=== PATIENT | male | born 1970 | race Caucasian/White ===

== ENCOUNTER 2017-12-17 03:11 | Emergency (ER) | payer MEDICAID ==
[2017-12-17 04:25] LABS: URINE BLOOD (Dip) POC Negative (NEGATIVE); URINE GLUCOSE (Dip) POC Negative (NEGATIVE); URINE KETONES (Dip) POC 2+ (NEGATIVE); URINE LEUKOCYTE EST (Dip) POC Negative (NEGATIVE); URINE NITRITE (Dip) POC Negative (NEGATIVE); URINE TOTAL PROTEIN POC Negative (NEGATIVE)
[2017-12-17 04:25] LABS: URINE PH (Dip) POC 5.5 (5.0-8.5)
[2017-12-17] MEDS: HYDROCODONE/APAP (10/325) TAB PO (04:36)
[2017-12-17] MEDS: ONDANSETRON 4 MG INJ IV (04:36)
[2017-12-17 04:42] LABS: WHITE BLOOD COUNT 14.3 10^3/ul (4.8-10.8)
[2017-12-17 04:42] LABS: HEMATOCRIT 48.3 % (42.0-52.0); HEMOGLOBIN 16.1 g/dl (14.0-18.0); MEAN CORPUSCULAR HEMOGLOBIN 29.7 pg (29.0-33.0); MEAN CORPUSCULAR HGB CONC 33.3 g/dl (32.0-37.0); MEAN PLATELET VOLUME 10.6 fl (7.4-10.4); PLATELET COUNT 276 10^3/UL (140-415); RED BLOOD COUNT 5.43 10^6/ul (4.70-6.10); RED CELL DISTRIBUTION WIDTH 12.6 % (11.5-14.5)
[2017-12-17 05:03] LABS: ADD MAN DIFF? YES
[2017-12-17 05:11] LABS: ALANINE AMINOTRANSFERASE 97 IU/L (13-69); ALBUMIN 4.7 g/dl (3.3-4.9); ALBUMIN/GLOBULIN RATIO 1.34; ALKALINE PHOSPHATASE 102 IU/L (42-121); ANION GAP 16 (8-16); ASPARTATE AMINO TRANSFERASE 47 IU/L (15-46); BILIRUBIN,INDIRECT 0.2 mg/dl (0-1.1); BILIRUBIN,TOTAL 0.2 mg/dl (0.2-1.3); BLOOD UREA NITROGEN 16 mg/dl (7-20); CARBON DIOXIDE 27 mmol/L (21-31); CHLORIDE 106 mmol/L (97-110); CREATININE 0.86 mg/dl (0.61-1.24); GLUCOSE 103 mg/dl (70-220); LIPASE 183 U/L (23-300); POTASSIUM 3.8 mmol/L (3.5-5.1); SODIUM 145 mmol/L (135-144); TOTAL PROTEIN 8.2 g/dl (6.1-8.1)
== END 2017-12-17 06:02 | disposition home or self-care (01) ==
LOC: E/R 03:11
DX: R10.84 Generalized abdominal pain (principal); F17.210 Nicotine dependence, cigarettes, uncomplicated
CPT/HCPCS: 36415; 74176; 80053; 81003; 83690; 85025; 96374; 99285-25

== ENCOUNTER 2018-07-09 16:19 | Emergency (ER) | payer SELFPAY | END 2018-07-09 17:02 | disposition left against medical advice (07) | LOC: E/R 16:19 | DX: Z53.21 Procedure and treatment not carried out due to patient leaving prior to being seen by health care provider (principal) ==